=== PATIENT | male | born 1965 | race Caucasian/White ===

== ENCOUNTER → 2016-10-06 | Outpatient (CLI) | payer OTHER ==
[~2016-10-06] MED LIST: ALEVE220 MG PO; ULTRAM 50MG TAB50 MG PO
== END ==
LOC: MRI 07:29
DX: M25.511 Pain in right shoulder (principal)

== ENCOUNTER 2017-05-21 09:00 | Emergency (ER) | payer OTHER ==
[~2017-05-21] VITALS: Ht 177.8 cm; Wt 68.0 kg
[2017-05-21] MEDS ORDERED: PERCOCET 5-3251 EACH PO (10:34)
[2017-05-21] MEDS ORDERED: VALIUM5 MG PO (10:34)
[2017-05-21] MEDS ORDERED: ZOFRAN ODT4 MG PO (11:22)
[2017-05-21] MEDS ORDERED: TRAMADOL 50 MG50 MG PO (11:22)
== END 2017-05-21 11:35 | disposition home or self-care (01) ==
LOC: ER 09:00
DX: S39.012A Strain of muscle, fascia and tendon of lower back, initial encounter (principal); M54.30 Sciatica, unspecified side; W17.89XA Other fall from one level to another, initial encounter; Y93.89 Activity, other specified; Y92.89 Other specified places as the place of occurrence of the external cause; Y99.8 Other external cause status

== ENCOUNTER 2017-07-25 10:25 | Emergency (ER) | payer OTHER ==
[~2017-07-25] VITALS: Ht 175.3 cm; Wt 62.6 kg
[~2017-07-25 10:25] MED LIST changes: +PERCOCET 5-3251 EACH PO; +TRAMADOL 50 MG50 MG PO; +VALIUM5 MG PO; +ZOFRAN ODT4 MG PO
[2017-07-25] MEDS ORDERED: MOBIC15 MG PO (11:42)
[2017-07-25] MEDS ORDERED: HYDROCODON-ACE1 EAC7 PO (11:42)
[2017-07-25] MEDS ORDERED: VALIUM5 MG PO (11:42)
[2017-07-25 11:49] VITALS: BP 115/71
== END 2017-07-25 11:51 | disposition home or self-care (01) ==
LOC: ER 10:25
DX: M54.30 Sciatica, unspecified side (principal)

== ENCOUNTER → 2017-07-29 | Outpatient (CLI) | payer OTHER ==
[~2017-07-29] MED LIST changes: +HYDROCODON-ACE1 EAC7 PO; +MOBIC15 MG PO
== END ==
LOC: MRI 14:39
DX: M54.16 Radiculopathy, lumbar region (principal); M51.26 Other intervertebral disc displacement, lumbar region